=== PATIENT | male | born 1950 | race African-American/Black ===

== ENCOUNTER 2018-01-22 09:23 | Day surgery (SDC) | payer OTHER, MEDICARE ==
[2018-01-22] MEDS ORDERED: GENTAMICIN 100 MG/100 ML BAG 100 MG/100 ML BAG IV ONE (10:05)
[2018-01-22] MEDS ORDERED: Ringers Lactate 1,000 ML IV ONE (10:05)
[2018-01-22] MEDS ORDERED: PROPOFOL 200 MG/20 ML VIAL IV ONE (11:03)
[2018-01-22] MEDS ORDERED: MIDAZOLAM HCL 2 MG/2 ML INJ ONE (11:04)
[2018-01-22] MEDS ORDERED: LIDOCAINE 1% MPF 5 ML VIAL ONE (11:05)
[2018-01-22] MEDS ORDERED: FENTANYL CITR 100 MCG/2 ML ONE (11:05)
[2018-01-22] MEDS: MEPERIDINE HCL 50 MG/ML AMP ONE ×3 (12:32→12:47)
[2018-01-22] MEDS ORDERED: MEPERIDINE HCL 50 MG/ML AMP ONE (12:50)
[2018-01-22] MEDS ORDERED: HYDROCODONE/APAP 5/325 MG TAB ONE (13:27)
== END 2018-01-22 14:15 | disposition home or self-care (01) ==
LOC: OR 09:23
PROVIDERS: ATTEND Urology
PROC: 0VT08ZZ Resection of Prostate, Via Natural or Artificial Opening Endoscopic (ICD-10-PCS; principal; 2018-01-22 11:00)
DX: N40.1 Benign prostatic hyperplasia with lower urinary tract symptoms (principal); N42.9 Disorder of prostate, unspecified; R35.0 Frequency of micturition; R39.14 Feeling of incomplete bladder emptying; R35.1 Nocturia; R39.16 Straining to void; R39.15 Urgency of urination; R39.12 Poor urinary stream; R97.20 Elevated prostate specific antigen [PSA]; E78.00 Pure hypercholesterolemia, unspecified; E03.9 Hypothyroidism, unspecified; I12.9 Hypertensive chronic kidney disease with stage 1 through stage 4 chronic kidney disease, or unspecified chronic kidney disease; N18.9 Chronic kidney disease, unspecified
CPT/HCPCS: 52601; 88305; J1580; J2175 ×2; J2250; J3010